=== PATIENT | female | born 1970 | race Hispanic/Latino ===

== ENCOUNTER 2024-03-07 10:17 | Observation (INO) | payer SELFPAY ==
[2024-03-07] VITALS (28 sets, daily range): BP systolic 159–194; BP diastolic 76–118
[~2024-03-07] VITALS: Ht 152.4 cm; Wt 82.5 kg
--- NOTE | 2024-03-07 10:29 | NUR ---
PATIENT TO ROOM 12
[2024-03-07] MEDS ORDERED: ONDANSETRON HCl 4 MG/2 ML SDV IV ONE (10:30)
[2024-03-07] MEDS ORDERED: SODIUM CHLORIDE 0.9% 1,000 ML IV ONE (10:30)
--- NOTE | 2024-03-07 10:45 | NUR ---
PT RESTING IN BED AWAKE, RR EVEN AND UNLABORED, FMAILY AT BEDSIDE. PT MEDICATED PER ORDERS.
[2024-03-07 10:47] LABS: BASO% 0.2 % (0-3); EOS% 0.1 % (0-8); HEMATOCRIT 44.4 % (37.0-47.0); HEMOGLOBIN 14.6 g/dl (12.0-16.0); IMMATURE GRANULOCYTES 0.2 % (0.0-5.0); LYMPH% 7.6 % (15-41); MEAN CELL VOLUME 92.3 fL CALC (80.0-100.0); MEAN CORPUSCULAR HGB 30.4 pG CALC (26.0-32.0); MEAN CORPUSCULAR HGB CONC 32.9 g/dL CAL (32.0-36.0); MONO% 3.4 % (2-13); NEUT# 8.74 thou/uL (2.00-7.15); NEUT% 88.5 % (42-76); RED BLOOD COUNT 4.81 mill/uL (4.20-5.60); RED CELL DISTRI WIDTH 14.3 % (11.5-15.5)
[2024-03-07] MEDS ORDERED: MORPHINE SULFATE 4 MG/ML VIAL IV ONE ×2 (11:10→14:10)
[2024-03-07] MEDS ORDERED: LIDOCAINE VISCOUS 2% 15 ML UDC PO ONE (11:15)
[2024-03-07] MEDS ORDERED: ALUM & MAG HYDROX-SIMETHICONE 30 ML PO ONE (11:15)
[2024-03-07 11:18] LABS: URINE BILIRUBIN - DIPSTICK Negative (NEGATIVE); URINE BLOOD DIPSTICK Moderate (NEGATIVE); URINE COLOR Yellow; URINE GLUCOSE - DIPSTICK 100 mg/dL (NEGATIVE); URINE KETONE Negative (NEGATIVE); URINE LEUK ESTERASE Negative (NEGATIVE); URINE NITRITE - DIPSTICK Negative (Negative); URINE PROTEIN - DIPSTICK 100 mg/dL (NEG-TRACE); URINE SPECIFIC GRAVITY 1.025; URINE UROBILINOGEN - DIPSTICK 0.2 E.U./dL (0.2)
[2024-03-07 11:31] LABS: ALBUMIN 4.6 g/dL (3.2-5.0); ALKALINE PHOSPHATASE 110 u/l (38-126); ANION GAP 15 (6-22 (CALC)); BILIRUBIN, TOTAL 1.1 mg/dL (0.02-1.3); BUN 14 mg/dL (7-17); BUN/CREATININE RATIO 24 (12-20 (CALC)); CARBON DIOXIDE 20 mmol/l (22-30); CHLORIDE 106 mmol/l (95-108); CREATININE 0.6 mg/dL (0.5-1.0); ESTIMATED GFR 107 ML/MIN (>=90 (CALC)); LIPASE 78 u/l (23-300); POTASSIUM 4.2 mmol/l (3.5-5.1); SGOT/AST 58 u/l (14-36); SODIUM 137 mmol/l (137-146); TOTAL PROTEIN 8.3 g/dL (6.3-8.2)
[2024-03-07 11:32] LABS: URINE SQUAMOUS EPITHELIAL CELL MODERATE EPI/hpf (0-FEW); URINE WBC 0-2 WBC/hpf (0-5)
--- NOTE | 2024-03-07 11:36 | NUR ---
PT TAKEN TO CT VIA WHEELCHAIR
--- NOTE | 2024-03-07 12:15 | NUR ---
PT RETURNED FROM CT VIA WHEELCHAIR
--- NOTE | 2024-03-07 13:20 | NUR ---
PT TRANSPORTED TO US VIA WHEELCHAIR
--- NOTE | 2024-03-07 14:00 | NUR ---
PT RETURNED FROM [facility] VIA WHEELCHAIR
[2024-03-07] MEDS ORDERED: PIPERACILLIN Sodium-Tazobactam 3.375 GM in SODIUM CHLORIDE 0.9% 100 ML IV ONE (15:10)
[2024-03-07] MEDS ORDERED: ONDANSETRON HCl 4 MG/2 ML SDV IV PRN (15:50)
[2024-03-07] MEDS ORDERED: SODIUM CHLORIDE 0.9% 1,000 ML IV PRN (15:50)
[2024-03-07] MEDS ORDERED: ACETAMINOPHEN 325 MG/TAB PO PRN (15:50)
[2024-03-07] MEDS ORDERED: HYDROmorphone HCL 2 MG/AMP IV PRN (15:50)
[2024-03-07] MEDS ORDERED: DEXTROSE 250 ML IV PRN (15:55)
[2024-03-07] MEDS ORDERED: LABETALOL HCL 20 MG/ 4 ML CARTRG IV PRN (15:55)
[2024-03-07] MEDS ORDERED: INSULIN LISPRO 100 UNITS/ML ML SC SCH (17:00)
--- NOTE | 2024-03-07 17:35 | NUR ---
PATIENT ARRIVED TO [facility] FROM ED; ROOM AIR BREATHING UNLABORED AND EVEN; COMPLAINT OF [place] BUT NO VOMITING; STATES SHE HAVE SOME PAIN IN ABD AREA; PATIENT AMBULATED WITH NO ISSUES FROM STRETCHER TO BED; FAMILY IN ROOM WITH PATIENT; VITALS STABLE; EDUCATED PATIENT ON HOW TO USE CALL LIGHT,VERBALIZED UNDERSTANDING ON HOW TO USE, SAFETY MEASURES WAS EDUCATED; BED IN LOWEST POSTION;FAMILY IN ROOM TO HELP TRANSLATE, PATIENT IS WOLOF SPEAKING ONLY.
[2024-03-07] MEDS ORDERED: KETOROLAC TROMETHAMINE 15 MG/ML SDV IV SCH (18:00)
--- NOTE | 2024-03-07 19:50 | NUR ---
PT RESTING FAMILY AT BEDSIDE. PT'S BP ELEVATED PRN IV LABETALOL GIVEN OTHER VS WNL ON RA. LUNGS CLEAR. BLE ANKLES TRACE EDEMA. ABD AREA TENDER BUT NOT PAINFUL ACTIVE BOWEL SOUNDS. SKIN INTACT. CALL LIGHT WITHIN REACH. PLAN OF CARE ONGOING.
[2024-03-07] MEDS ORDERED: PIPERACILLIN Sodium-Tazobactam 3.375 GM in SODIUM CHLORIDE 0.9% 100 ML IV SCH (21:00)
--- NOTE | 2024-03-07 21:05 | NUR ---
03/07/2024 @2100 Patient glucose was 155.
--- NOTE | 2024-03-07 21:33 | NUR ---
CONSENT SIGN BY PATIENT WITH FAMILY PRESENT NURSE WITNESS.
[2024-03-08] VITALS (17 sets, daily range): BP systolic 132–147; BP diastolic 66–84
--- NOTE | 2024-03-08 00:30 | NUR ---
PT RESTING REPORTS SOME DISCOMFORT SHE HAD SCHEDULED KETOROLAC WHICH WAS GIVEN PT ALSO REPORTED NAUSEA PRN IV ZOFRAN PROVIDED. CALL LIGHT WITHIN REACH. PLAN OF CARE ONGOING.
--- NOTE | 2024-03-08 04:00 | NUR ---
PT SLEEPING NO DISTRESS NOTED ON EXAM FAMILY AT BEDSIDE. IV SITE CHECKED WORKING PROPERLY. CALL LIGHT WITHIN REACH. PLAN OF CARE ONGOING.
--- NOTE | 2024-03-08 07:05 | NUR ---
PT LAYING IN BED TALKING TO HER SON WHO IS BEDSIDE, PT IS A&O X 3, PUPILS PERRL, LUNG SOUNDS CLEAR, PT COMPLAINS OF A SMALL AMOUNT OF PAIN IN ABD, STRONG RADIAL AND PEDAL PULSES, 20G L AC IV, FLUSHED WITH EASE, IV FLUIDS INFUSING AT PRESCRIBED RATE, SAFETY MEASURES REINFORCED, CALL LAMAR WITHIN REACH
--- NOTE | 2024-03-08 08:10 | NUR ---
PT LEFT UNIT VIA STRETCHER TO OR
[2024-03-08] MEDS ORDERED: FAMOTIDINE 10MG/ML 2ML SDV IV ONE (08:26)
[2024-03-08] MEDS ORDERED: GLUCAGON HCL (Rdna) 1 MG VIAL ONE (08:55)
[2024-03-08] MEDS ORDERED: Iopamidol 300 (Isovue) 61% 100ML SDV IV ONE (08:55)
[2024-03-08] MEDS ORDERED: LIDOcaine HCl 1% (Local Anesth.) 20 ML VIAL ONE (08:56)
[2024-03-08] MEDS ORDERED: DEXAMETHASONE SODIUM PHOSPHATE PF 10 MG/ML SDV IV ONE (10:02)
[2024-03-08] MEDS ORDERED: SODIUM CHLORIDE 0.9% 1,000 ML BAG IV ONE (10:02)
[2024-03-08] MEDS ORDERED: PROPOFOL 200 MG/20 ML VIAL IV ONE (10:02)
[2024-03-08] MEDS ORDERED: ROCURONIUM BROMIDE 10 MG/ML 5ML VIAL IV ONE (10:02)
[2024-03-08] MEDS ORDERED: SUCCINYLCHOLINE CHLORIDE 20 MG/ML 10ML VIAL IV ONE (10:02)
[2024-03-08] MEDS ORDERED: SUGAMMADEX SODIUM 200 MG/2 ML SDV IV ONE (10:02)
[2024-03-08] MEDS ORDERED: PHENYLEPHRINE HCL 10 MG/ML VIAL IV ONE (10:02)
[2024-03-08] MEDS ORDERED: LIDOCAINE HCL 2% 2ML SDV IV ONE (10:02)
[2024-03-08] MEDS ORDERED: METOPROLOL TARTRATE 5 MG/5 ML VIAL IV ONE (10:02)
[2024-03-08] MEDS ORDERED: oxyCODONE 5MG/ ACETAMINOPHEN 325MG TAB PO PRN (10:50)
--- NOTE | 2024-03-08 11:35 | NUR ---
PT RETURN TO THE UNIT VIA STRETCHER FROM OR, BEDSIDE REPORT GIVEN, PT ASSISTED WITH TRANSFERRING FROM STRETCHER TO BED, PT TOLERATED WELL, SAFETY MEASURES REINFORCED, CALL LAMAR WITHIN REACH
[2024-03-08] MEDS ORDERED: SODIUM CHLORIDE 1,000 ML BTL IR ONE (12:21)
[2024-03-08] MEDS ORDERED: SODIUM CHLORIDE 0.9% 1,000 ML IV ONE (12:21)
[2024-03-08] MEDS ORDERED: STERILE WATER FOR IRRIGATION 1,000 ML BTL IR ONE (12:21)
--- NOTE | 2024-03-08 14:30 | NUR ---
PT ASSISTED BY NURSE TO GET OUT OF BED AND GO TO THE RESTROOM AND BACK TO BED, PT AMBULATED WITH A STEADY GAIT, PT TOLERATED WELL
--- NOTE | 2024-03-08 16:10 | NUR ---
FAMILY AT BEDSIDE, PT RESTING WITH EYES CLOSED, AROUSES EASILY TO VERBAL STIMULI, SAFETY MEASURES REINFORCED, CALL LAMAR WITHIN REACH
--- NOTE | 2024-03-08 20:00 | NUR ---
RECEIVED REPORT FROM NURSE MAYNOR, PATIENT RESTING IN BED, FAMILY IN ROOM, DENIES NAUSEA, C/O PAIN ON ABDOMEN PS 8/ WILL MEDICATE, PATIENT INCISION WITH DERMABOND,ANF ENRIQUE DRAIN ON RT UPPER ABDOMEN DRAINING SEROSANGUINEOUS FLUID, IV ON LAC G 20 NS @ 125CC/HR INFUSING WELL ON TELEMTERY, PATIENT EDUCATED ON THE USE OF SPIROMETERT INSPIRATORY VOLUME 500, PATINET ON SCD, CALL LIGHT IN REACHED.
[2024-03-09] VITALS (8 sets, daily range): BP systolic 127–157; BP diastolic 69–89
--- NOTE | 2024-03-09 00:38 | NUR ---
TAPAN RESTING IN BED, NOT IN DSITRESS, BREATHING EVEN UNALBORED, CALL JAMARCUS IN REACHED,
--- NOTE | 2024-03-09 03:28 | NUR ---
PATIENT ASSISTED TO THE BATHROOM, ASSISTED BACK IN BED, ENRIQUE DRAINED 15 CC OF SEROSANGUINEOUS FLUID, PATIROLY C/O PAIN PS 6/10, PRN PERCOCET GIVEN, PATIENT IN BED, SCD ON.
--- NOTE | 2024-03-09 05:06 | NUR ---
patinet c/o pain abdomen ps 4/10, due toradol given.
[2024-03-09 05:16] LABS: BASO% 0.1 % (0-3); IMMATURE GRANULOCYTES 0.2 % (0.0-5.0); LYMPH% 4.8 % (15-41); MEAN CELL VOLUME 94.7 fL CALC (80.0-100.0); MEAN CORPUSCULAR HGB 31.4 pG CALC (26.0-32.0); MEAN CORPUSCULAR HGB CONC 33.1 g/dL CAL (32.0-36.0); MONO% 7.6 % (2-13); NEUT# 10.81 thou/uL (2.00-7.15); NEUT% 87.3 % (42-76); RED BLOOD COUNT 3.79 mill/uL (4.20-5.60); RED CELL DISTRI WIDTH 14.8 % (11.5-15.5)
[2024-03-09 05:18] LABS: HEMATOCRIT 35.9 % (37.0-47.0); HEMOGLOBIN 11.9 g/dl (12.0-16.0)
[2024-03-09 05:29] LABS: BILIRUBIN, TOTAL 1.4 mg/dL (0.02-1.3); CREATININE 0.6 mg/dL (0.5-1.0); POTASSIUM 3.4 mmol/l (3.5-5.1)
[2024-03-09 05:37] LABS: ALBUMIN 3.3 g/dL (3.2-5.0); TOTAL PROTEIN 6.1 g/dL (6.3-8.2)
--- NOTE | 2024-03-09 08:00 | NUR ---
PT IN BED WITH HOB UP. PT IS ALERT AND ORIENTED AT THIS TIME, PT HAS NO C/O PAIN, ONLU MININAL DISCOMFORT AND REFUSES PAIN MEDS AT THIS TIME. PT HAS TELE ON WITH ALL LEADS ATTACHED. IV SITE CLEAN AND INTACT WITH NS INFUSING @ 100 ML/HR. PT LUNGS CLEAR AND BREATHING IS NON LABORED. DRESSING TO ABD CDI, NO DRAINAGE; ENRIQUE DRAIN INTACT WITH SEROUS SANG FLUID NOTED IN DRAIN. PT HAS SCDS ON BLE. PT HAS BEDSIDE COMMODE FOR TOILETING NEEDS. PT HAS CALL LIGHT WITHIN REACH AND SAFETY MEASURES IN PLACE AT THIS TIME.
--- NOTE | 2024-03-09 10:00 | NUR ---
pt complained of abdominal pain @1000. Notified Nurse Sarah @1000.
[2024-03-09] MEDS ORDERED: POTASSIUM CHLORIDE 20MEQ 100 ML IV SCH (10:30)
--- NOTE | 2024-03-09 10:45 | NUR ---
PT O2 SATS@ 80% ON RA, O2 @ 2LITERS ON VIA NC AND PT INSTRUCTED TO TAKE DEEP BREATHS IN THE NOSE. PT C/O SOB BUT NO PAIN AT THIS TIME. DR. GUY MADE AWARE AND NEW ORDERS RECEIVED FOR CXR AND ABG'S TO BE DRAWN. PT HAS FAMILY MEMBER AT BEDSIDE THAT WAS ABLE TO TRANSLATE. PT HAS CALL LIGHT WITHIN REACH AND SAFETY MEASURES IN PLACE AT THIS TIME.
--- NOTE | 2024-03-09 11:08 | NUR ---
took pts vitals and was stating in high 70's @1054. Immediately went to the Nurse (avinash), and elevated pt's head. Pt complained of shortness of breathe and feeling as if the need to vomit.
--- NOTE | 2024-03-09 11:10 | NUR ---
PT C/O NAUSE, ZOFRAN GIVEN. PT CONTINUES ON O2 @ 2 LITERS VIA NC, SATS @ 93%. PT HAS NO C/O PAIN AT THIS TIME.
--- NOTE | 2024-03-09 12:00 | NUR ---
PT ASSISTED TO BATHROOM, AMBULATING WELL. PT O2 SATS @ 92 % WITH O2 @ 2LITERS. PT HAS CALL LIGHT WITHIN REACH AND SAFETY MEASURES AT THIS TIME.
--- NOTE | 2024-03-09 13:45 | NUR ---
pt was ambulated down subramanian and back @1345. notified nurse.
--- NOTE | 2024-03-09 16:00 | NUR ---
PT IN BED FAMILY IN AT BEDSIDE. PT HAS NO C/O PAIN AT THIS TIME. PT HAS CALL LIGHT WITHIN REACH AND SAFETY MEASURES IN PLACE.
--- NOTE | 2024-03-09 20:00 | NUR ---
RECEIVED REPORT FROM NURSE AKASH, PATIENT RESTING IN BED, SON IN ROOM, PATIENT ALERT ORIENTED. PATIENT C/O PAIN ON OPERATIVE SITE WILL MEDICATE. PATIENT EDUCATED ON THE USE OF SPIROMETER PATIENT INSPIRATORY VOULUME 1000 MARKED, PATIENT ENCOURAGED TO DO DEEP BREATHING AND CAOUGHING WITH PILLOW SPLITTING THE ABDOMEN. PATIENT AMBULATORY, WALKED TO THE BATHROOM, AND BACK IN BED. PATINET ON SCD, REMAINS ON O2 @ 2LPM VIA NC AT THSI TIME, IV LAC G 20 NS AT 80 CC/HR, NOTED TRACE OF EDEMA ON LEFT HAND AND TRACE EDEMA ON BILAT ANKLE, PATINET ON SCD, CALL LIGHT IN REACHED.
[2024-03-09] MEDS ORDERED: SIMETHICONE 20 MG/0.3 ML PO PRN (21:35)
[2024-03-09] MEDS ORDERED: SIMETHICONE 20 MG/0.3 ML PO ONE (22:12)
[2024-03-10] VITALS: BP 146/82
--- NOTE | 2024-03-10 01:11 | NUR ---
PATIENT APPEARS TO BED SLEEPING WITH EYES CLOSED, REMAINS ON O2 @ 2LPM VIA NC, NOT IN DSITRESS, CALL LIGHT IN RAECHED.
[2024-03-10 03:57] VITALS: BP 159/84
[2024-03-10 04:00] VITALS: BP 159/84
--- NOTE | 2024-03-10 04:32 | NUR ---
PATIENT AWAKE, C/O PAIN ON OPERATIVE SITE PRN PERCOCET GIVEN, PATIENT ASSISTE TO THE BATHROOM AND ASSISTED BACK IN BED, PATIENT USED INCENTIVE SIPROMETER INPIRATORY VOLUME AT 1500 AT THIS TIME.
[2024-03-10 06:37] LABS: CREATININE 0.5 mg/dL (0.5-1.0); POTASSIUM 3.4 mmol/l (3.5-5.1); TOTAL PROTEIN 5.6 g/dL (6.3-8.2)
[2024-03-10 07:25] VITALS: BP 144/75
--- NOTE | 2024-03-10 10:34 | NUR ---
ROUNDING ON PT THIS MORNING. PT IS A&OX4 [place]URU[place] SPEAKING ONLY AND ABLE TO MAKE HER NEED KNOWN. FAMILY AT BEDSIDE. VVS, PRN ON O2 2L, DENIES PAIN. MED WAS GIVEN PER OCT ORDER. CALL LIGHT AND PERSONAL ITEM WITH REACH. EDUCATED PT AND FAMILY ON PLAN OF CARE.
[2024-03-10 11:11] VITALS: BP 140/72
[2024-03-10] MEDS ORDERED: PERCOCET 5/325M1 TAB PO (12:17)
--- NOTE | 2024-03-10 14:07 | NUR ---
PT WALK 250 FEET WITH AND WALKER. O2 SAT AT 94 ON ROOM AIR.
[2024-03-10 14:58] VITALS: BP 132/60
--- NOTE | 2024-03-10 15:52 | NUR ---
REMOVE PT ENRIQUE DRAIN. PT TOLERATED IT WELL.NURSE WENT OVER D/C INSTRUCTIONS. PT STATED THAT SHE UNDERSTOOD.
== END 2024-03-10 16:06 | disposition home or self-care (01) | DRG 418 ==
LOC: ED 10:17 → ED-I 14:55 → ED 15:09 → MS2 15:10
PROVIDERS: Family Medicine; ADMIT Surgery; ATTEND Surgery
PROC: 0FT44ZZ Resection of Gallbladder, Percutaneous Endoscopic Approach (ICD-10-PCS; principal; 2024-03-08)
PROC: 0WQF0ZZ Repair Abdominal Wall, Open Approach (ICD-10-PCS; 2024-03-08)
DX: K80.00 Calculus of gallbladder with acute cholecystitis without obstruction (principal); K82.1 Hydrops of gallbladder; K43.2 Incisional hernia without obstruction or gangrene; E87.6 Hypokalemia; R09.02 Hypoxemia; E80.6 Other disorders of bilirubin metabolism
CPT/HCPCS: G0378; J1100; J1610; Q9966; Q9967